=== PATIENT | male | born 1960 | race Caucasian/White ===

== ENCOUNTER 2016-07-20 15:18 | Emergency (ER) | payer OTHER ==
[2016-07-20 17:44] LABS: PROTHROMBIN TIME (PATIENT) 76.3 SECONDS (9.6-11.5)
[2016-07-20 17:47] LABS: INR 6.8
== END 2016-07-20 18:01 | disposition home or self-care (01) ==
LOC: CED 15:18 → CFTX 15:18
PROVIDERS: Nurse Practitioner
DX: S61.011A Laceration without foreign body of right thumb without damage to nail, initial encounter (principal); S61.210A Laceration without foreign body of right index finger without damage to nail, initial encounter; S61.212A Laceration without foreign body of right middle finger without damage to nail, initial encounter; Z23 Encounter for immunization; R79.1 Abnormal coagulation profile; I48.91 Unspecified atrial fibrillation; W26.0XXA Contact with knife, initial encounter; Y92.009 Unspecified place in unspecified non-institutional (private) residence as the place of occurrence of the external cause
CPT/HCPCS: 12001; 36415; 85610; 90471; 90715; 99283